=== PATIENT | male | born 1965 | race Caucasian/White ===

== ENCOUNTER → 2017-07-16 | Outpatient (CLI) | payer OTHER ==
[~2017-07-16] MED LIST: ATOR10 PO; CEPH500 PO; CRUTCH3 USE; ERYT333ERA PO; HYDACE5 PO; IBUP800 PO; METR500 PO; Mobic15 MG; NAPR500 PO; Naprosyn500 MG PO; OXYACE5T PO; PIOG30 PO; PROACE100 PO; SILSUL1TC TOP; SULTRIDS PO; TRAM50 PO
[2017-07-16 18:41] LABS: Alanine Aminotransfer (ALT/SGP 44 U/L (12-78); Albumin, Blood 3.8 g/dL (3.4-5.0); Alk Phos 78 U/L (50-136); Anion Gap 7 mmol/L (6-16); Aspartate Aminotrans (AST/SGOT 27 U/L (12-37); Bilirubin, Total 0.3 mg/dL (0.1-1.0); Blood Urea Nitrogen 18 mg/dL (8-24); Bun/Creatinine Ratio 22.8 (12.0-20.0); CHOL/HDL RATIO 6.1; CO2, Blood 28 mmol/L (21-32); Chloride, Blood 105 mmol/L (98-108); Cholesterol 250 mg/dL (50-200); Creatinine, Blood 0.79 mg/dL (0.60-1.20); Globulin, Blood 3.7 g/dL (2.2-4.0); Glomerular Filtration Rate >60 (60-); Glucose, Blood 107 mg/dL (70-99); HDL Cholesterol 41 mg/dL (>39); Potassium, Blood 4.7 mmol/L (3.5-5.5); Sodium, Blood 140 mmol/L (136-145); Total Protein, Blood 7.5 g/dL (6.4-8.2); Triglycerides 524 mg/dL (30-160); Very Low Density Lipoprot Chol Unable to Calculate mg/dL (6-32)
[2017-07-16 18:42] LABS: LDL/HDL RATIO Unable to Calculate; Low Density Lipoprotein Chol Unable to Calculate mg/dL (0-110)
== END | disposition home or self-care (01) ==
LOC: LAB 17:21
PROVIDERS: Nurse Practitioner Family
DX: R73.9 Hyperglycemia, unspecified (principal)
CPT/HCPCS: 80053; 80061; 83036

== ENCOUNTER 2019-05-04 09:05 | Emergency (ER) | payer OTHER ==
[~2019-05-04] VITALS: Ht 177.8 cm; Wt 86.2 kg
[2019-05-04] MEDS ORDERED: BUSP5 PO (10:21)
[2019-05-04] MEDS ORDERED: ATOR10 PO (10:22)
[2019-05-04] MEDS ORDERED: Robaxin-750750 MG PO (11:17)
[2019-05-04] MEDS ORDERED: PRED10 PO (11:17)
== END 2019-05-04 11:23 | disposition home or self-care (01) ==
LOC: ER 09:05
DX: M48.061 Spinal stenosis, lumbar region without neurogenic claudication (principal); Z88.0 Allergy status to penicillin; Z79.899 Other long term (current) drug therapy; E11.9 Type 2 diabetes mellitus without complications; E78.00 Pure hypercholesterolemia, unspecified; F17.200 Nicotine dependence, unspecified, uncomplicated
CPT/HCPCS: 72131; 96372; 99283-25; J1885

== ENCOUNTER 2023-08-03 02:10 | Emergency (ER) | payer OTHER ==
[~2023-08-03] VITALS: Ht 175.3 cm; Wt 83.9 kg
[~2023-08-03 02:10] MED LIST changes: +BUSP5 PO; +PRED10 PO; +Robaxin-750750 MG PO
[2023-08-03 02:18] VITALS: BP 183/93
[2023-08-03] MEDS ORDERED: METPRE4DP PO (03:38)
[2023-08-03] MEDS ORDERED: Voltaren100 GM TOP (03:38)
[2023-08-03] MEDS ORDERED: Robaxin750 MG PO (03:38)
== END 2023-08-03 03:45 | disposition home or self-care (01) ==
LOC: ER 02:10
DX: M54.16 Radiculopathy, lumbar region (principal); E11.9 Type 2 diabetes mellitus without complications; F17.210 Nicotine dependence, cigarettes, uncomplicated; E78.00 Pure hypercholesterolemia, unspecified
CPT/HCPCS: 96372; 99283-25; A9270; J1885; J7512

== ENCOUNTER → 2023-11-02 | Outpatient (CLI) | payer OTHER ==
[~2023-11-02] MED LIST changes: +METPRE4DP PO; +Robaxin750 MG PO; +Voltaren100 GM TOP
[2023-11-02 14:53] LABS: BASOPHILS ABSOLUTE AUTO 0.04 K/mm3 (0.00-0.23); BASOPHILS PERCENT AUTO 1 % (0-2); EOSINOPHILS PERCENT AUTO 4 % (0-6); Hemoglobin 14.1 g/dL (13.5-17.5); IMMATURE GRAN ABSOLUTE AUTO 0.01 K/mm3 (0.00-0.10); IMMATURE GRAN PERCENT AUTO 0 % (0-1); LYMPHOCYTES ABSOLUTE AUTO 1.57 K/mm3 (0.84-5.20); LYMPHOCYTES PERCENT AUTO 28 % (21-46); MONOCYTES ABSOLUTE AUTO 0.42 K/mm3 (0.16-1.47); MONOCYTES PERCENT AUTO 8 % (4-13); Mean Corpuscular HGB 30.1 pg (26.0-34.0); Mean Corpuscular HGB Conc 33.6 g/dL (31.5-36.5); Mean Corpuscular Volume 90 fL (80-100); Mean Platelet Volume 10.6 fL (9.1-12.4); NEUTROPHILS ABSOLUTE AUTO 3.33 K/mm3 (1.96-9.15); NEUTROPHILS PERCENT AUTO 60 % (41-73); Platelet Count 292 K/mm3 (150-400); RDW Coefficient Variation 12.7 % (11.7-14.2); RDW Standard Deviation 41.8 fL (35.1-46.3); Red Blood Cell Count 4.68 M/mm3 (4.30-5.90); White Blood Cell Count 5.57 K/mm3 (4.00-11.30)
[2023-11-02 15:22] LABS: Alanine Aminotransfer (ALT/SGP 22 U/L (12-78); Albumin, Blood 3.8 g/dL (3.4-5.0); Albumin/Globulin Ratio 1.2 (0.8-1.8); Alk Phos 107 U/L (50-136); Anion Gap 7 mmol/L (3-11); Aspartate Aminotrans (AST/SGOT 12 U/L (12-37); Bilirubin, Total 0.9 mg/dL (0.1-1.0); Blood Urea Nitrogen 13 mg/dL (8-24); Bun/Creatinine Ratio 12.1 (12.0-20.0); CHOL/HDL RATIO 3.2; CO2, Blood 28 mmol/L (21-32); Chloride, Blood 108 mmol/L (98-108); Cholesterol 149 mg/dL (50-200); Creatinine, Blood 1.07 mg/dL (0.60-1.20); Globulin, Blood 3.2 g/dL (2.2-4.0); Glomerular Filtration Rate 81 (60-); Glucose, Blood 102 mg/dL (70-99); HDL Cholesterol 47 mg/dL (>39); LDL/HDL RATIO 1.7; Low Density Lipoprotein Chol 80 mg/dL (0-110); Potassium, Blood 3.6 mmol/L (3.5-5.5); Sodium, Blood 139 mmol/L (136-145); Thyroid Stimulating Hormone 0.427 uIU/mL (0.360-4.800); Triglycerides 110 mg/dL (30-160); Very Low Density Lipoprot Chol 22 mg/dL (6-32)
== END ==
LOC: LAB SHORT 12:53 → LAB 12:53
PROVIDERS: Family Medicine
DX: Z13.1 Encounter for screening for diabetes mellitus (principal); E78.5 Hyperlipidemia, unspecified; I10 Essential (primary) hypertension
CPT/HCPCS: 80053; 80061; 83036; 84443; 85025

== ENCOUNTER 2024-04-25 11:53 | Inpatient (IN) | payer OTHER ==
[~2024-04-25] VITALS: Ht 175.3 cm; Wt 86.3 kg
[2024-04-25] MEDS ORDERED: HYDROmorphone HCl/Pf 1MG SYR IV ONE ×2 (12:45→18:20)
[2024-04-25] MEDS ORDERED: Ondansetron HCl 2 MG / ML 2ML Vial IV ONE (12:50)
[2024-04-25] MEDS ORDERED: propofoL 100 ML IV SCH (14:15)
[2024-04-25] MEDS ORDERED: CeFAZolin Sodium 2,000 MG in NS 100 ML IV ONE (14:15)
[2024-04-25] MEDS ORDERED: NS 1,000 ML IV SCH ×2 (14:15→19:45)
[2024-04-25] MEDS ORDERED: Tetanus,Diphtheria Toxd Ped/Pf 0.5 ML VIAL IM ONE (14:55)
[2024-04-25] MEDS ORDERED: Diphth,Pertuss(Acell),Tet Vac 0.5 ML VIAL IM ONE (15:00)
[2024-04-25] MEDS ORDERED: HydrALAZINE HCl 20 MG / ML 1ML Vial IV PRN (19:45)
[2024-04-25] MEDS ORDERED: Ondansetron HCl 2 MG / ML 2ML Vial IV PRN (19:45)
[2024-04-25] MEDS ORDERED: OxyCODONE 5 mg/Acetamin 325 mg TABLET PO PRN (19:45)
[2024-04-25] MEDS ORDERED: FLU VACC TS2024-25(6MOS UP)/PF 45 MCG/0.5 ML SYRINGE IM ONE (21:00)
[2024-04-25] MEDS ORDERED: Docusate Sodium 100 MG Cap PO SCH (21:00)
[2024-04-25 21:37] VITALS: BP 156/92
[2024-04-25 21:41] LABS: Hematocrit 39.3 % (37.0-53.0); Hemoglobin 13.2 g/dL (13.5-17.5); Mean Corpuscular HGB Conc 33.6 g/dL (31.5-36.5); Mean Corpuscular Volume 89 fL (80-100); Mean Platelet Volume 9.6 fL (9.1-12.4); Platelet Count 276 K/mm3 (150-400); RDW Coefficient Variation 12.6 % (11.7-14.2); RDW Standard Deviation 41.2 fL (35.1-46.3); White Blood Cell Count 10.06 K/mm3 (4.00-11.30)
[2024-04-25 22:01] LABS: Bun/Creatinine Ratio 15.8 (12.0-20.0); Calcium, Blood 8.5 mg/dL (8.5-10.1); Creatinine, Blood 1.01 mg/dL (0.60-1.20); Potassium, Blood 3.6 mmol/L (3.5-5.5)
[2024-04-25] MEDS ORDERED: NS 250 ML IV PRN (22:45)
[2024-04-25 23:59] VITALS: BP 166/90
[2024-04-26] VITALS (19 sets, daily range): BP systolic 133–181; BP diastolic 71–101
[2024-04-26] MEDS ORDERED: CeFAZolin Sodium 2,000 MG in NS 100 ML IV SCH
--- NOTE | 2024-04-26 04:23 | NUR ---
SHIFT SUMMARY DRESSING TO RIGHT THIGH CDI WITH GAUZE, 6X9 EXU DRY AND ROLLED GAUZE IN PLACE, NO SHADOWING NOTED. PAIN MANAGED PER EMAR. IVF INFUSING PER ORDERS. NPO SINCE 0000. PT RESTING IN BED WITH EYES CLOSED, RESPIRATIONS EVEN AND UNLABORED, HAS CALL LIGHT IN REACH. PLAN FOR SURGICAL INTERVENTION TODAY. WILL CONTINUE TO CARE FOR PATIENT AND REPORT TO ONCOMING RN.
[2024-04-26] MEDS ORDERED: HYDROmorphone HCl/Pf 1MG SYR IV PRN (09:00)
--- NOTE | 2024-04-26 11:05 | NUR ---
[facility]
--- NOTE | 2024-04-26 11:33 | NUR ---
PT HAS 20G IV TO RIGHT WRIST THAT FLUSHES WELL AND FLOWS TO GRAVITY.
[2024-04-26] MEDS ORDERED: Lactated Ringer's 1,000 ML IV SCH (11:40)
[2024-04-26] MEDS ORDERED: FentaNYL Citrate 50 MCG/ML 2 ML Injection ONE ×2 (13:11→14:13)
[2024-04-26] MEDS ORDERED: propofoL 20 ML IV ONE (13:11)
[2024-04-26] MEDS ORDERED: Midazolam HCl 1MG / ML 2ML Vial ONE (13:11)
[2024-04-26] MEDS ORDERED: EpiNEPhrine 1 MG/1 ML 1ML Vial ONE (13:26)
[2024-04-26] MEDS ORDERED: Bupivacaine 0.5% HCl 5 MG/ML 30MLVIAL ONE (13:26)
[2024-04-26] MEDS ORDERED: Ondansetron HCl 2 MG / ML 2ML Vial ONE (13:43)
[2024-04-26] MEDS ORDERED: Dexamethasone Sod Phos 10 MG/ML 1ML VIAL ONE (13:43)
[2024-04-26] MEDS ORDERED: Ketorolac Tromethamine 30mg Vial ONE (13:46)
[2024-04-26] MEDS ORDERED: Labetalol HCL 5 MG/ML 4ML Injection (Single Dose) ONE (15:32)
[2024-04-26] MEDS ORDERED: OxyCODONE HCL 5 MG TAB PO PRN (15:35)
--- NOTE | 2024-04-26 16:30 | NUR ---
PT ARRIVES FROM PACU A/OX4 WITH ADEQUATE PAIN CONTROL. PT HAS AQUACEL DRSG AND DOMINGA WRAP TO R KNEE C/D/I. CMS INTACT.
--- NOTE | 2024-04-26 18:06 | NUR ---
PT REMAINS A/OX4, ARNOLD FOOD/DRINK, MEDICATED WITH PO PAIN MEDICATION PER EMAR. FAMILY AT BEDSIDE. PLAN IS TO STAY TONIGHT AND BE EVALUATED BY PT TOMORROW PRIOR TO D/C HOME.
--- NOTE | 2024-04-27 04:24 | NUR ---
SHIFT SUMMARY POD R KNEE I&D W/ POSSIBLE FIXATION PT ABLE TO SLEEP FOR MOST OF THE NIGHT. PAIN MANAGD PER EMAR. TOLERATING PO INTAKE. VOIDING. DRESSING TO R KNEE IS C/D/I. PT HAS NOT BEEN OOB, BUT WEIGHT BEARING STATUS HAS BEEN DISCUSSED W/ PT. PT REMAINS NWB ON RLE. NO OTHER CONCERNS AT THIS TIME, CALL LIGHT WITHIN REACH
[2024-04-27 04:38] VITALS: BP 148/87
[2024-04-27 04:50] LABS: BASOPHILS ABSOLUTE AUTO 0.03 K/mm3 (0.00-0.23); BASOPHILS PERCENT AUTO 0 % (0-2); EOSINOPHILS ABSOLUTE AUTO 0.06 K/mm3 (0.00-0.68); EOSINOPHILS PERCENT AUTO 1 % (0-6); Hematocrit 37.5 % (37.0-53.0); Hemoglobin 12.4 g/dL (13.5-17.5); IMMATURE GRAN ABSOLUTE AUTO 0.03 K/mm3 (0.00-0.10); IMMATURE GRAN PERCENT AUTO 0 % (0-1); LYMPHOCYTES ABSOLUTE AUTO 1.39 K/mm3 (0.84-5.20); LYMPHOCYTES PERCENT AUTO 14 % (21-46); MONOCYTES ABSOLUTE AUTO 0.67 K/mm3 (0.16-1.47); MONOCYTES PERCENT AUTO 7 % (4-13); Mean Corpuscular HGB Conc 33.1 g/dL (31.5-36.5); Mean Corpuscular Volume 91 fL (80-100); Mean Platelet Volume 10.2 fL (9.1-12.4); NEUTROPHILS ABSOLUTE AUTO 7.99 K/mm3 (1.96-9.15); NEUTROPHILS PERCENT AUTO 79 % (41-73); Platelet Count 266 K/mm3 (150-400); RDW Coefficient Variation 12.7 % (11.7-14.2); RDW Standard Deviation 42.3 fL (35.1-46.3); Red Blood Cell Count 4.13 M/mm3 (4.30-5.90); White Blood Cell Count 10.17 K/mm3 (4.00-11.30)
[2024-04-27 05:07] LABS: Bun/Creatinine Ratio 11.6 (12.0-20.0); Calcium, Blood 8.2 mg/dL (8.5-10.1); Creatinine, Blood 0.78 mg/dL (0.60-1.20)
[2024-04-27 07:12] VITALS: BP 167/84
--- NOTE | 2024-04-27 07:59 | NUR ---
PHYSICAL THERAPY WORKED WITH PT AND SAID HE DID WELL. PT NOW EATING BREAKFAST. PLAN TO D/C TODAY R LEG NON-WEIGHT BEARING ON CRUTCHES.
[2024-04-27] MEDS ORDERED: DOCU100 PO (09:38)
[2024-04-27] MEDS ORDERED: Percocet 5-3251 EACH PO (09:38)
[2024-04-27] MEDS ORDERED: AMOCLA875 PO (09:40)
[2024-04-27] MEDS ORDERED: ASPI81CH PO (09:40)
--- NOTE | 2024-04-27 10:38 | NUR ---
PT AGING BOX HAND LIGHT FOR SUDDEN ONSET OF 10/10 R KNEE PAIN. PT MEDICATED WITH DILAUDID 1MG IV SLOW PUSH FOR PAIN CONTROL. PT HAS CALL LIGHT IN REACH AND SIDE RAILS UP. PT CALLING FOR RIDE HOME.
--- NOTE | 2024-04-27 11:00 | NUR ---
PT'S MOM AT BEDSIDE FOR RIDE HOME. AWAITING ANOTHER FAMILY MEMBER TO GET RX FOR CRUTCHES.
--- NOTE | 2024-04-27 11:21 | NUR ---
PT D/C HOME WITH FAMILY. PT ARNOLD PO INTAKE WELL, VOIDING WELL. ADEQUATE PAIN CONTROL. PT HOME ON STRICT NWB TO R LEG UNTIL CLEARED BY ORTHO. PT WILL F/U WITH SCHEDULED ORTHO APT. PT ESCORTED TO LOBBY VIA WC.
== END 2024-04-27 11:20 | disposition home or self-care (01) | DRG 482 ==
LOC: ER 11:53 → ERHOLD 19:40 → SURS 19:40
PROVIDERS: Internal Medicine; Nurse Practitioner Acute Care; Orthopaedic Surgery; ADMIT Internal Medicine
PROC: 0SC Lower Joints, Extirpation (ICD-10-PCS; 2024-04-25)
PROC: 0QSB04Z Reposition Right Lower Femur with Internal Fixation Device, Open Approach (ICD-10-PCS; principal; 2024-04-26 12:00)
DX: S72.421A Displaced fracture of lateral condyle of right femur, initial encounter for closed fracture (principal); S81.041A Puncture wound with foreign body, right knee, initial encounter; F41.9 Anxiety disorder, unspecified; I10 Essential (primary) hypertension; E78.5 Hyperlipidemia, unspecified; W34.09XA Accidental discharge from other specified firearms, initial encounter; E11.9 Type 2 diabetes mellitus without complications; F17.210 Nicotine dependence, cigarettes, uncomplicated
CPT/HCPCS: 36415; 73560-RT; 73700; 80048; 82947; 85025; 85027; 90471; 90702; 90715; 96365-59; 96375-59; 96376-59; 97116; 97162; 99152; 99285-25; A9270; C1713; C1769; J0171; J0690; J1100; J1170; J1885; J2250; J2405; J2704; J3010; J7030; J7120

== ENCOUNTER 2024-12-09 09:46 | Day surgery (SDC) | payer OTHER ==
[~2024-12-09] VITALS: Ht 175.3 cm; Wt 82.8 kg
[~2024-12-09 09:46] MED LIST changes: +AMOCLA875 PO; +ASPI81CH PO; +Bupivacaine 0.5% W/EPI 1:200000 SDV 30 ML Vial ONE; +DOCU100 PO; +EPINEPhrine HCl 1 MG/ML 1ML Amp ONE; +Percocet 5-3251 EACH PO
[2024-12-09] MEDS ORDERED: CeFAZolin Sodium 2,000 MG VIAL ONE (09:55)
[2024-12-09] MEDS ORDERED: Lactated Ringer's 1,000 ML IV ONE ×2 (09:59→10:54)
[2024-12-09] MEDS ORDERED: ATOR40TA PO (10:04)
--- NOTE | 2024-12-09 10:28 | NUR ---
12/09/24 1028 JAM DE LA ROSA PT IN PRE OP - READY FOR OR. CALL LIGHT AT BEDSIDE. ENGAGED IN PRE OP AND POST OP TEACHING ON WHAT TO EXPECT. ALL QUESTIONS ASKED AND ANSWERED. DURING PRE OP ASSESSMENT, PT ADVISED HE IS NO LONGER TAKING ANY OF THE PRESCRIPTIONS LISTED IN THE H AND P, FOR A MONTH NOW. TOOK CHART TO DR. JENSEN TO ADVISE OF THIS AND PT'S ELEVATED BP TODAY IN PRE OP.
[2024-12-09] MEDS ORDERED: FentaNYL Citrate 50 MCG/ML 2 ML Injection ONE (10:55)
[2024-12-09] MEDS ORDERED: propofoL 20 ML IV ONE ×2 (10:56→11:34)
[2024-12-09] MEDS ORDERED: Midazolam HCl 1MG / ML 2ML Vial ONE (10:56)
[2024-12-09] MEDS ORDERED: ePHEDrine Sulfate 50 MG/ML 1ML Injection ONE (11:55)
[2024-12-09] MEDS ORDERED: HydrALAZINE HCl 20 MG / ML 1ML Vial ONE (13:00)
--- NOTE | 2024-12-09 13:23 | NUR ---
12/09/24 1323 Jacqui Hale PARTNER BROUGHT TO BEDSIDE, POLAR PACK APPLIED. PT IN RECLINER DRINKING FLUIDS
[2024-12-09] MEDS ORDERED: OxyCODONE 5 mg/Acetamin 325 mg TABLET ONE (13:26)
[2024-12-09 13:56] VITALS: BP 147/88
== END 2024-12-09 14:01 | disposition home or self-care (01) ==
LOC: ORSCSDS 09:46
PROVIDERS: Orthopaedic Surgery
PROC: 0SBC4ZZ Excision of Right Knee Joint, Percutaneous Endoscopic Approach (ICD-10-PCS; principal; 2024-12-09 10:45)
PROC: 0SP Lower Joints, Removal (ICD-10-PCS; principal; 2024-12-09 10:45)
DX: T84.84XA Pain due to internal orthopedic prosthetic devices, implants and grafts, initial encounter (principal); S72.434D Nondisplaced fracture of medial condyle of right femur, subsequent encounter for closed fracture with routine healing; I10 Essential (primary) hypertension; F17.210 Nicotine dependence, cigarettes, uncomplicated; E11.9 Type 2 diabetes mellitus without complications; Z79.899 Other long term (current) drug therapy
CPT/HCPCS: 82947; A9270; C1769; J0171; J0360; J0690; J2250; J2704; J3010; J7120